=== PATIENT | male | born 1960 | race Caucasian/White ===

== ENCOUNTER 2020-10-18 16:10 | Outpatient (REF) | payer OTHER, MEDICARE, SELFPAY ==
[2020-10-18 16:02] LABS: ESR 23 mm/hr (1-20)
[2020-10-18 16:19] LABS: ALT 41 U/L (16-63); AST 57 U/L (15-37); Albumin 3.7 g/dL (3.4-5.0); Alkaline Phosphatase 196 U/L (46-116); Anion Gap 9.3 mmol/L (3-11); BUN 7 mg/dL (7-18); Bilirubin, Total 0.4 mg/dL (0.2-1.0); CO2 25.7 mmol/L (21.0-32.0); CREATININE 0.7 mg/dL (0.70-1.30); Calcium 9.4 mg/dL (8.5-10.1); Chloride 99 mmol/L (98-107); Glucose 96 mg/dL (74-106); Potassium 4.7 mmol/L (3.5-5.1); Sodium 134 mmol/L (136-145); TSH (W/Ref FT4) 3.01 uIU/mL (0.36-3.74); Total Protein 7.8 g/dL (6.4-8.2); Vitamin B12 282 pg/mL (193-986)
[2020-10-18 16:28] LABS: C-Reactive Protein 1.04 mg/dL (0.0-0.3); Uric Acid 6.9 mg/dL (3.5-7.2)
[2020-10-19 16:49] LABS: Rheumatoid Factor <8.6 IU/mL (<12.0)
[2020-10-19 17:54] LABS: PSA, Screening 0.3 ng/mL (0.0-4.5)
[2020-10-20 11:36] LABS: Lyme Ab w Rflx to Lyme Confirm Negative (Negative)
[2020-10-21 20:46] LABS: Anaplasma phagocytophilum Negative (Negative); B. miyamotoi PCR Negative (Negative); Babesia divergens/MO-1 Negative (Negative); Babesia duncani Negative (Negative); Babesia microti Negative (Negative); Ehrlichia chaffeensis Negative (Negative); Ehrlichia ewingii/canis Negative (Negative); Ehrlichia muris eauclairensis Negative (Negative)
== END 2020-10-18 16:11 | disposition home or self-care (01) ==
LOC: NCHCN 16:10
PROVIDERS: PCP Family Medicine; Visit Provider Family Medicine
DX: G62.9 Polyneuropathy, unspecified (principal); L98.499 Non-pressure chronic ulcer of skin of other sites with unspecified severity; R60.0 Localized edema; I10 Essential (primary) hypertension
CPT/HCPCS: 80053; 84153; 85652; 87798; 82607; 84443; 84550; 86140; 86431; 86618

== ENCOUNTER 2021-01-10 11:18 | Outpatient (REF) | payer OTHER, MEDICARE, SELFPAY ==
[2021-01-10 16:23] LABS: AST 33 U/L (15-37)
[2021-01-11 10:50] LABS: Hepatitis A Antibody IgM Negative (Negative); Hepatitis B Core Antibody Negative (Negative); Hepatitis B surface Ag Negative (Negative); Hepatitis C Ab w Rflx HCV PCR Negative (Negative)
== END 2021-01-10 11:19 | disposition home or self-care (01) ==
LOC: NCHCN 11:18
PROVIDERS: PCP Family Medicine; Visit Provider Family Medicine
DX: R79.89 Other specified abnormal findings of blood chemistry (principal)
CPT/HCPCS: 86704; 86709; 86803; 87340; 84450

== ENCOUNTER 2021-09-22 09:50 | Outpatient (REF) | payer OTHER, MEDICARE, SELFPAY ==
[2021-09-27 09:31] LABS: O-desmethyltramadol 9513 ng/mL (Cutoff:25); Tramadol 15459 ng/mL (Cutoff:25)
== END 2021-09-22 09:51 | disposition home or self-care (01) ==
LOC: NCHCN 09:50
PROVIDERS: PCP Family Medicine; Visit Provider Family Medicine
DX: Z02.89 Encounter for other administrative examinations (principal); Z51.81 Encounter for therapeutic drug level monitoring
CPT/HCPCS: 80373

== ENCOUNTER 2022-03-15 11:09 | Outpatient (REF) | payer OTHER, MEDICARE, SELFPAY ==
[2022-03-15 15:40] LABS: HCT 40.4 % (40.0-50.0); HGB 13.4 g/dL (13.5-17.5); MCH 31.4 pg (27.0-33.0); MCHC 33.2 % (32.0-36.0); MCV 95 fL (80-95); MPV 10.5 fL (8.0-11.0); Platelet Count 272 10^3/uL (130-400); RBC 4.27 10^6/uL (4.36-5.78); RDW 14.5 % (11.8-14.1); RDW-SD 50.4 fL; WBC 10.82 10^3/uL (4.4-10.8)
[2022-03-15 16:31] LABS: ALT 26 U/L (16-63); AST 32 U/L (15-37); Albumin 3.5 g/dL (3.4-5.0); Alkaline Phosphatase 118 U/L (46-116); Anion Gap 7.8 mmol/L (3-11); BUN 7 mg/dL (7-18); Bilirubin, Total 0.4 mg/dL (0.2-1.0); CO2 24.2 mmol/L (21.0-32.0); CREATININE 0.7 mg/dL (0.70-1.30); Calcium 8.9 mg/dL (8.5-10.1); Chloride 98 mmol/L (98-107); Glucose 94 mg/dL (74-106); Potassium 4.6 mmol/L (3.5-5.1); Sodium 130 mmol/L (136-145); Total Protein 7.6 g/dL (6.4-8.2)
[2022-03-15 17:07] LABS: Hemoglobin A1C 5.9 % (<5.7)
[2022-03-15 17:10] LABS: Calculated LDL 138 mg/dL (<100); Cholesterol 237 mg/dL (<200); HDL Cholesterol 79 mg/dL (40-60); Triglyceride 101 mg/dL (<150); Vitamin B12 1281 pg/mL (193-986)
== END 2022-03-15 11:10 | disposition home or self-care (01) ==
LOC: NCHCN 11:09
PROVIDERS: PCP Family Medicine; Visit Provider Family Medicine
DX: Z00.00 Encounter for general adult medical examination without abnormal findings (principal); G62.89 Other specified polyneuropathies; I10 Essential (primary) hypertension; R60.0 Localized edema; M54.16 Radiculopathy, lumbar region; R73.09 Other abnormal glucose; L08.89 Other specified local infections of the skin and subcutaneous tissue; E53.8 Deficiency of other specified B group vitamins
CPT/HCPCS: 80053; 80061; 85027; 87077; 82607; 83036; 87070; 87186; 87205

== ENCOUNTER 2022-06-01 13:14 | Outpatient (REF) | payer OTHER, MEDICARE, SELFPAY | END 2022-06-01 13:15 | disposition home or self-care (01) | LOC: NCHCN 13:14 | PROVIDERS: PCP Family Medicine; Visit Provider Family Medicine | DX: L98.499 Non-pressure chronic ulcer of skin of other sites with unspecified severity (principal) | CPT/HCPCS: 87077; 87070; 87186; 87205 ==

== ENCOUNTER 2022-09-21 09:09 | Outpatient (CLI) | payer OTHER, MEDICARE, SELFPAY | END 2022-09-21 09:10 | disposition home or self-care (01) | PROVIDERS: PCP Family Medicine; Visit Provider Family Medicine | DX: R00.0 Tachycardia, unspecified (principal) | CPT/HCPCS: 93246 ==

== ENCOUNTER 2022-10-16 11:47 | Outpatient (CLI) | payer OTHER, MEDICARE, SELFPAY ==
--- NOTE | 2022-10-16 12:05 | W.CARDEVENT ---
Date of service: 10/16/22 Time of Service: 12:05 Cardiac Event Recorder Referring Provider:: Melissa Soto Indications:: Tachycardia Cardiac Event Note: This is a 14-day cardiac cath lab manager ordered for tachycardia Rhythm throughout was sinus. Average heart rate was 80. Minimum was 58, maximum 122 There was no atrial fibrillation, no SVT, no pauses greater than 3 seconds There were rare ventricular ectopic beats 2 episodes of Mobitz 1 second-degree AV block were noted during sleep Patient's symptoms were reported which corresponded to sinus rhythm in the 70s
== END 2022-10-16 11:48 | disposition home or self-care (01) ==
LOC: CARDOPNVT 11:47
PROVIDERS: PCP Family Medicine; Visit Provider Internal Medicine Cardiovascular Disease
DX: I44.1 Atrioventricular block, second degree (principal)

== ENCOUNTER 2022-11-01 00:32 | Outpatient (CLI) | payer OTHER, MEDICARE, SELFPAY ==
--- NOTE | 2022-11-01 07:30 | DI.US_ITS ---
APPROVED REPORT EXAM: Comprehensive 2D, Doppler, and color-flow Echocardiogram Patient Location: Out-Patient Spool Carrier: Marian Velarde RDCS (AE) Indications: Tachycardia, EKG changes Other Information Study Quality: Fair. Technically limited study due to body habitus. Conclusion Normal left ventricular chamber size. Estimated ejection fraction is 58%. No segmental wall motion abnormalities are noted Grossly normal right ventricular size and systolic function Both atria are normal in size There is no structural or hemodynamically significant valvular disease Wall motion Left Ventricle The left ventricle is grossly normal size. Technically limited parasternal imaging. The left ventricu lar systolic function is normal. The left ventricular ejection fraction is within the normal range. U nable to assess LV wall thickness. There is normal LV segmental wall motion. There is no ventricular septal defect visualized. LVEF is 58%. Right Ventricle Right ventricle is grossly normal in size. Right ventricular systolic function is grossly normal. Atria The left atrium size is normal. The right atrium size is normal. The interatrial septum is intact wit h no evidence for an atrial septal defect. Aortic Valve The aortic valve is normal in structure. There is no aortic valvular stenosis. No aortic regurgitatio n is present. Mitral Valve The mitral valve is normal in structure. No evidence of mitral valve stenosis. Trace mitral regurgita tion. Tricuspid Valve The tricuspid valve is normal in structure. There is no tricuspid valve stenosis. Trace tricuspid reg urgitation. Unable to assess PA pressure. Pulmonic Valve Pulmonic valve is not well visualized. There is no pulmonic valvular stenosis. There is no pulmonic v alvular regurgitation. Great Vessels The aortic root is normal in size. The ascending aorta is normal in size. Aortic arch is not well vis ualized. IVC is normal in size and collapses >50% with inspiration. Pericardium There is no pericardial effusion. 2D Dimensions Ao Root d 3.49 cm M: 3.1 - 3.7 LV Vol A2C d MOD 47.4 mL Ao Asc Diam d 3.01 cm M: 2.6 - 3.4 LV Vol A4C d MOD 74.5 mL LVEF (Singleton's) 57.12 % M: 52 - 72 LA vol/ BSA A2C s A-L 13.9 mL/m2 LV Volume 47.00 mL M: 62 - 150 LA vol/ BSA A4C s A-L 20.4 mL/m2 LV Volume Index 24.60 mL/m2 M: 34 - 74 LA Vol/ BSA Biplane s A-L 19.6 mL/m2 LV Vol Biplane MOD 61.7 mL LA Area A4C s MOD 15.59 cm2 LA Area A2C s MOD 11.06 cm2 LV EF A4C MOD 58.4 % LV EF A2C MOD 56.1 % LV EF Biplane MOD 57.1 % SV 35.26 mL SV Index 18.44 mL/m2 M-Mode TAPSE 1.18 cm (M/F) >1.7 LV Diastology MV E' medial 0.072 (>0.07 m/s) E/A Ratio 0.6 LV E/e MED 7.75 (<14) MV E Vmax 0.56 (0.4-1.3 m/s) MV E' lateral 0.086 (>0.1 m/s) MV A Vmax 0.95 (0.4-1.3 m/s) LV E/e LAT 6.50 (<14) MV E/A Ratio 0.57 MV E/E' medial 7.75 MV E/E' lateral 6.53 Aortic Valve LVOT Area 3.47 cm2 AoV Area Vmax 2.94 cm2 LVOT Vmax 0.82 m/s AoV Area/ BSA (Vmax) 1.54 cm2/m2 LVOT Mean Hubert. 0.54 m/s ANYI Mean Hubert. 2.62 cm2 LVOT Peak Grad 2.7 mmHg ANYI Mean Hubert. Index 1.37 cm2/m2 LVOT Mean Grad 1.3 mmHg LVOT VTI 0.157 m LVOT Diam s 2.10 cm AoV Vmax 0.96 m/s Velocity Ratio 0.85 AoV Mean Hubert. 0.72 m/s AoV Peak Grad 3.7 mmHg LVOT SV 54.38 mL AoV Mean Grad 2.2 mmHg AoV VTI 0.163 m AoV Area VTI 3.33 cm2 AoV Area/ BSA (VTI) 1.74 cm/m2 Mitral Valve MV DT 261 (160-240 msec) MV PHT 76 msec MV Area PHT 2.91 cm2 MV VTI 0.186 m MV Area VTI 2.92 (4.0-6.0 cm2) Pulmonary Valve PV Vmax 0.89 (0.5-1.5 m/s) RVOT Peak Gr. 1.44 mmHg PV Peak Grad 3.2 mmHg RVOT Mean Gr. 0.75 mmHg PV Mean Grad 2.3 mmHg RVOT VTI 0.093 m PV VTI 0.159 m RVOT Vmax 0.60 m/s
== END 2022-11-01 00:52 ==
PROVIDERS: PCP Family Medicine; Visit Provider Family Medicine
DX: R00.0 Tachycardia, unspecified (principal); R94.31 Abnormal electrocardiogram [ECG] [EKG]
CPT/HCPCS: 93306

== ENCOUNTER 2023-02-15 12:38 | Outpatient (REF) | payer MEDICARE, SELFPAY ==
--- NOTE | 2023-02-15 09:30 | SKI_PTH ---
PATIENT: Tirso Lloyd LOC: [facility] U#:[id number] AGE/SX: 62/M ROOM: RE02/15/[address]: Melissa Soto V : 1960 BED: DIS: 02/15/2023 SPEC #: [id number] RECD: 02/15/23 13:18 STATUS: AZRA HAILE #: [id number] KINZA: 02/15/23 09:[address]: Melissa Soto V DEPT: Surgical Specimen RECD BY: Shilpa Silva Tissues: 1 - SKIN BIOPSY(SHAVE/PUNCH) Procedures: SKIN LEVEL 4 Comments: [id number]
== END 2023-02-15 12:39 | disposition home or self-care (01) ==
LOC: NCHCN 12:38
PROVIDERS: PCP Family Medicine; Visit Provider Family Medicine
DX: L30.8 Other specified dermatitis (principal)
CPT/HCPCS: 88305

== ENCOUNTER 2023-03-30 08:10 | Emergency (ER) | payer MEDICARE, SELFPAY ==
[2023-03-30 08:12] VITALS: BP 127/74; PULSE 99; RESP 18; TEMP 37.1; O2SAT 94
--- NOTE | 2023-03-30 08:40 | ED.GENADUL_ITS ---
Discharge Plan Discharge Details Chief Complaint: Orthopedic Primary Care Provider: Melissa Soto V ED Provider: Jesus Wilson Home Meds and New Rx's Prescriptions: No Action fexofenadine [Maria Luz Allergy] 180 MG tablet 180 mg PO DAILY Patient Comments: no longer taking amoxicillin-pot clavulanate [Augmentin] 500-125 mg tablet 1 tab PO BID Qty: 14 0RF Patient Comments: no longer taking Rx Instructions: Take as instructed per Jessi [facility], 06/08 OV cetirizine 10 mg tablet 10 mg PO DAILY Patient Comments: Take 1 tablet by mouth every day cyanocobalamin (vitamin B-12) 1,000 mcg tablet 1,000 mcg PO DAILY Patient Comments: Take 1 tablet by mouth every day furosemide 20 mg tablet 20 mg PO DAILY Patient Comments: Take 1 tablet by mouth once a day as directed metoprolol succinate 25 mg tablet extended release 24 hr 25 mg PO BID Patient Comments: Take 1 tablet by mouth bid morphine [MS Contin] 30 MG tablet extended release 30 mg PO BID tramadol 50 MG tablet 50 mg PO BID gabapentin 300 MG capsule 2 cap PO .QAM, NOON cyclobenzaprine 10 MG tablet 5 mg PO TID PRN naproxen 250 MG tablet 1 tab PO BID PRN Patient Comments: no longer taking aspirin [Lo-Dose Aspirin] 81 MG tablet,delayed release (DR/EC) 162 mg PO DAILY amitriptyline 25 MG tablet 50 mg PO HS nifedipine 60 MG tablet extended release 24hr 90 mg PO DAILY esomeprazole magnesium [Nexium] 40 MG capsule,delayed release(DR/EC) 40 mg PO DAILY lisinopril 10 MG tablet 5 mg PO DAILY Patient Comments: no longer taking ibuprofen 200 MG tablet 600 mg PO BID PRN bisacodyl 5 MG tablet,delayed release (DR/EC) 1 tab PO DAILY Patient Comments: no longer taking gabapentin 300 MG capsule 900 mg PO HS hydrocodone-acetaminophen 1 EACH tablet 1 ea PO Q6H PRN PRNQty: 14 0RF Patient Comments: no longer taking Medical Decision Making X-ray of the left shoulder reveals a mildly impacted humeral head fracture. No dislocation. Clavicle appears normal. Results reviewed with patient treatment plan reviewed with patient and his . Outpatient Ortho referral HPI General Date/Time Provider Initiated Documentation: 03/30/23 08:40 . HPI Narrative: 62-year-old gentleman presents to the emergency department status post fall on . He states he was going down the stairs to his cellar and missed the last step. He tried holding on with the arm on the right as much as he could but unfortunately he still went to the floor landing onto his left shoulder. According to his he was able to raise his arms and lean on his elbows throughout the day on Saturday but the pain and the swelling and discoloration of the left shoulder has gotten worse over the course the past 2 days. No paresthesias distal to the injury no focal weakness. No head trauma. No neck pain. No chest pain. No shortness of breath. No new back pain. Related Data Home Medications Medication Instructions Recorded Confirmed amitriptyline 25 mg tablet 50 mg PO HS 01/24/17 03/30/23 aspirin 81 mg tablet,delayed 162 mg PO DAILY 01/24/17 03/30/23 release (Lo-Dose Aspirin) bisacodyl 5 mg tablet,delayed 1 tab PO DAILY 01/24/17 05/14/17 release cyclobenzaprine 10 mg tablet 5 mg PO TID PRN 01/24/17 03/30/23 esomeprazole magnesium 40 mg 40 mg PO DAILY 01/24/17 03/30/23 capsule,delayed release (Nexium) gabapentin 300 mg capsule 2 cap PO .QAM, NOON 01/24/17 03/30/23 ibuprofen 200 mg tablet 600 mg PO BID PRN 01/24/17 03/30/23 lisinopril 10 mg tablet 5 mg PO DAILY 01/24/17 05/14/17 morphine 30 mg tablet,extended 30 mg PO BID 01/24/17 03/30/23 release (MS Contin) naproxen 250 mg tablet 1 tab PO BID PRN 01/24/17 05/14/17 nifedipine 60 mg tablet,extended 90 mg PO DAILY 01/24/17 03/30/23 release 24 hr tramadol 50 mg tablet 50 mg PO BID 01/24/17 03/30/23 fexofenadine 180 mg tablet 180 mg PO DAILY 02/13/17 05/14/17 (Maria Luz Allergy) gabapentin 300 mg capsule 900 mg PO HS 04/04/17 03/30/23 hydrocodone 5 mg-acetaminophen 325 1 ea PO Q6H PRN PRN ##14 04/08/17 05/14/17 mg tablet amoxicillin 500 mg-potassium 1 tab PO BID cellulitis #14 tabs 06/16/22 clavulanate 125 mg tablet (Augmentin) cetirizine 10 mg tablet 10 mg PO DAILY 03/30/23 03/30/23 cyanocobalamin (vitamin B-12) 1,000 mcg PO DAILY 03/30/23 03/30/23 1,000 mcg tablet furosemide 20 mg tablet 20 mg PO DAILY 03/30/23 03/30/23 metoprolol succinate 25 mg 25 mg PO BID 03/30/23 03/30/23 tablet,extended release 24 hr Previous Rx's Medication Instructions Recorded hydrocodone 5 mg-acetaminophen 325 1 ea PO Q6H PRN PRN ##14 04/08/17 mg tablet amoxicillin 500 mg-potassium 1 tab PO BID cellulitis #14 tabs 06/16/22 clavulanate 125 mg tablet (Augmentin) Allergies Allergy/AdvReac Type Severity Reaction Status Date / Time No Known Allergies Allergy Unverified 03/30/23 08:17 General Stated Complaint: Orthopedic ELLIE: 3 Review of Systems Narrative: 10 point review of system is negative unless otherwise specified in the HPI PFSH All Active Problems (Updated 06/16/22 @ 16:19 by Irena Tarango DO) Cellulitis (Acute) lower rt limb, per d/c note, per pt report Social History Smoking/Tobacco Use Status: Current every day Tobacco Type: smokeless tobacco Smoking risk assessment performed?: Yes Alcohol Intake: current Alcohol Intake frequency: a few times a week Alcohol type: beer Drug use: Daily Substance use type: marijuana Housing: house Do you feel safe at home: Yes Do you feel safe in your relationship?: Yes Exam Narrative Exam Narrative: General: A,A Ox3, Calm, no apparent distress, well developed, pleasant and cooperative Head Size/Shape: normocephalic, atraumatic Eyes Pupils: PERRLA Extraocular Mobility: intact and symmetrical Conjunctiva: non-injected, anicteric, no discharge Ears, Nose, Throat Nares: patent bilaterally Oral Cavity: moist Neck:no midline te Respiratory Respiratory Effort: no dyspnea Auscultation: clear to auscultation bilaterally, normal breath sounds, no wheezing, no rales/crackles Cardiovascular Heart Auscultation: regular rate and rhythm, normal S1, normal S2, no murmurs, no rubs, no gallops, Pulse Quality: +2 equal bilaterally, location(s) Abdomen Inspection and Palpation: soft, non-tender, non-distended, no hepatosplenomegaly Musculoskeletal System Joints, Bones, and Muscles: no deformities Extremities: warm and well-perfused, no cyanosis, capillary refill <2 seconds Skin Skin Inspection: no rash, no lesions, no bruising Neurological Motor: normal tone, normal strength, moving all extremities equally Reflexes: deep tendon reflexes 2+ bilaterally, no clonus Psychiatric: good insight, good judgement, normal mood and affect Course Vital Signs Vital signs: Vital Signs Temperature 37.1 C 03/30/23 08:12 Pulse 99 H 03/30/23 08:12 Respiratory Rate 18 03/30/23 08:12 Blood Pressure 127/74 03/30/23 08:12 Pulse Oximetry 94 03/30/23 08:12 Temperature 37.1 C 03/30/23 08:12 Temperature Source Oral 03/30/23 08:12 Pulse 99 H 03/30/23 08:12 Respiratory Rate 18 03/30/23 08:12 Blood Pressure 127/74 03/30/23 08:12 Blood Pressure Position Sitting 03/30/23 08:12 Pulse Oximetry 94 03/30/23 08:12 Oxygen Delivery Method Room Air 03/30/23 08:12 Oxygen Flow Rate 0 03/30/23 08:12 Pain Level 9 03/30/23 08:12
--- NOTE | 2023-03-30 08:45 | DI.RAD_ITS ---
Exam(s) XR SHOULDER LT COMPLETE 2+V EXAM: XR SHOULDER LT COMPLETE 2+V CLINICAL HISTORY: fall pain. TECHNIQUE: 2D digital imaging was performed. COMPARISON: No exams were available for comparison FINDINGS: 3 views There is an acute impacted mildly displaced surgical neck fracture of the humerus. No osseous lesion s. No radiopaque foreign body. IMPRESSION: Humeral head-neck fracture with impaction. No dislocation of the glenohumeral joint. DATA REPOSITORY: RADIATION DOSE DELIVERED:
[2023-03-30 09:36] VITALS: BP 127/74; PULSE 85; RESP 18; TEMP 37.1; O2SAT 94
--- NOTE | 2023-03-30 09:43 | DI.VRAD_ITS ---
PROCEDURE INFORMATION: Exam: XR Left Shoulder Exam date and time: 03/30/2023 9:10 AM Age: 62 years old Clinical indication: Other: Fall pain TECHNIQUE: Imaging protocol: Radiologic exam of the left shoulder. Views: 2 or more views. COMPARISON: MRI - CERVICAL SPINE WO CONT 02/14/2017 3:26 PM FINDINGS: Bones/joints: There is a comminuted, moderately displaced surgical neck proximal humerus fracture. No dislocation. Soft tissues: upper arm swelling. IMPRESSION: Proximal humerus fracture. Dictated and Authenticated by: Zoraida Herrera MD. Ordering:GEORGE Lee MD
== END 2023-03-30 09:37 | disposition home or self-care (01) ==
PROVIDERS: Emergency Provider Emergency Medicine; PCP Family Medicine
DX: S42.292A Other displaced fracture of upper end of left humerus, initial encounter for closed fracture (principal); W10.9XXA Fall (on) (from) unspecified stairs and steps, initial encounter
CPT/HCPCS: 99283; 73030; 99284

== ENCOUNTER 2023-04-02 10:58 | Outpatient (CLI) | payer MEDICARE, SELFPAY ==
--- NOTE | 2023-04-02 09:48 | DI.RAD_ITS ---
Exam(s) XR SHOULDER LT COMPLETE 2+V EXAM: XR SHOULDER LT COMPLETE 2+V CLINICAL HISTORY: F/U FRACTURE. TECHNIQUE: 2D digital imaging was performed of the left shoulder. Two images were obtained. AP and Y views were obtained. COMPARISON: CR,XR XR SHOULDER LT COMPLETE 2+V from 03/30/2023 FINDINGS: BONES: There is again seen an impacted fracture of the surgical neck of the left humerus. Alignment appears similar compared to the prior examination. Note is also made of fractures involving the left 3rd, 4th and 5th ribs. No bony destructive lesion is seen. JOINTS: No dislocation present. SOFT TISSUE: Normal. IMPRESSION: Impacted surgical neck fracture of the left humerus. DATA REPOSITORY: RADIATION DOSE DELIVERED:
--- NOTE | 2023-04-02 09:49 | DI.RAD_ITS ---
Exam(s) XR WRIST LT LIMITED EXAM: XR WRIST LT LIMITED CLINICAL HISTORY: LEFT WRIST PAIN S/P FALL. TECHNIQUE: 2D digital imaging was performed of the left wrist. Two images were obtained. PA and la teral views were obtained. COMPARISON: No exams were available for comparison FINDINGS: BONES: No acute fracture is present. No bony destructive lesion is seen. JOINTS: The carpal bones are normally aligned. SOFT TISSUE: Normal. IMPRESSION: Unremarkable radiographs of the left wrist. DATA REPOSITORY: RADIATION DOSE DELIVERED:
--- NOTE | 2023-04-02 09:51 | DI.RAD_ITS ---
Exam(s) XR CHEST 1V IN DI DEPT EXAM: XR CHEST 1V IN DI DEPT CLINICAL HISTORY: RIB PAIN S/P FALL TECHNIQUE: 2D digital imaging was performed of the chest. One image was obtained. An AP view was ob tained. COMPARISON: CR CHEST 2 VIEWS PA,LAT from 02/01/2017 FINDINGS: MEDIASTINUM: Normal. HEART: Normal. PULMONARY VASCULATURE: Normal. LUNGS: Linear atelectasis is seen in the lung bases. No focal consolidating infiltrates. PLEURAL SPACE: No pleural effusion or pneumothorax. BONE:Within normal limits for the patient's age. Findings suspicious for left 3rd, 4th and 5th rib fr actures are seen on the x-ray of the left shoulder performed the same day. OTHER FINDINGS:Normal. IMPRESSION: Bilateral basilar atelectasis. DATA REPOSITORY: RADIATION DOSE DELIVERED:
== END 2023-04-02 10:59 | disposition home or self-care (01) ==
LOC: DIORS 10:58
PROVIDERS: PCP Family Medicine; Referring Provider Family Medicine; Visit Provider Student in an Organized Health Care Education/Training Program
DX: S42.292A Other displaced fracture of upper end of left humerus, initial encounter for closed fracture; X58.XXXA Exposure to other specified factors, initial encounter
CPT/HCPCS: 99203; 99213; 71045; 73030; 73100

== ENCOUNTER 2023-04-17 10:26 | Outpatient (CLI) | payer MEDICARE, SELFPAY ==
--- NOTE | 2023-04-17 09:36 | DI.RAD_ITS ---
Exam(s) XR SHOULDER LT COMPLETE 2+V EXAM: XR SHOULDER LT COMPLETE 2+V CLINICAL HISTORY: LEFT SHOULDER F/U. TECHNIQUE: 2D digital imaging was performed. COMPARISON: CR XR SHOULDER LT COMPLETE 2+V from 04/02/2023 FINDINGS: 3 views There is relatively stable appearance at the impacted femoral head-neck fracture site. There is no d islocation of glenohumeral joint. No fracture fragments evident in the non diminished subacromial sp luisa. No obvious fracture of the glenoid and scapula. There are adjacent multiple rib fractures agai n noted. There is atelectasis in the left lung again noted. No obvious pneumothorax. IMPRESSION: Unchanged appearance at the impacted fracture site of the humeral head-neck. The left sided rib fractures again noted. Atelectasis in the left lung base again noted. No pneumot horax. DATA REPOSITORY: RADIATION DOSE DELIVERED:
== END 2023-04-17 10:27 | disposition home or self-care (01) ==
LOC: DIORS 10:26
PROVIDERS: PCP Family Medicine; Referring Provider Family Medicine; Visit Provider Student in an Organized Health Care Education/Training Program
DX: S42.202D Unspecified fracture of upper end of left humerus, subsequent encounter for fracture with routine healing; X58.XXXD Exposure to other specified factors, subsequent encounter
CPT/HCPCS: 99213; 73030

== ENCOUNTER 2023-05-09 11:04 | Outpatient (REF) | payer MEDICARE, SELFPAY ==
[2023-05-09 17:00] LABS: HCT 40.6 % (40.0-50.0); HGB 13.3 g/dL (13.5-17.5); MCH 31.1 pg (27.0-33.0); MCHC 32.8 % (32.0-36.0); MCV 95 fL (80-95); MPV 11.1 fL (8.0-11.0); Platelet Count 388 10^3/uL (130-400); RBC 4.27 10^6/uL (4.36-5.78); RDW 14.4 % (11.8-14.1); RDW-SD 49.9 fL; WBC 9.29 10^3/uL (4.4-10.8)
[2023-05-09 17:26] LABS: Hemoglobin A1C 5.5 % (<5.7)
[2023-05-09 17:55] LABS: ALT 20 U/L (16-63); AST 25 U/L (15-37); Albumin 3.4 g/dL (3.4-5.0); Alkaline Phosphatase 245 U/L (46-116); Anion Gap 5.7 mmol/L (3-11); BUN 5 mg/dL (7-18); Bilirubin, Total 0.3 mg/dL (0.2-1.0); CO2 29.3 mmol/L (21.0-32.0); CREATININE 0.8 mg/dL (0.70-1.30); Calcium 9.5 mg/dL (8.5-10.1); Chloride 98 mmol/L (98-107); Estimated GFR 100.06 (mL/min/1.73m2); Glucose 95 mg/dL (74-106); Sodium 133 mmol/L (136-145); Total Protein 7.9 g/dL (6.4-8.2)
== END 2023-05-09 11:05 | disposition home or self-care (01) ==
LOC: NCHCN 11:04
PROVIDERS: PCP Family Medicine; Visit Provider Family Medicine
DX: I10 Essential (primary) hypertension (principal); R00.0 Tachycardia, unspecified; R79.89 Other specified abnormal findings of blood chemistry
CPT/HCPCS: 80053; 85027; 83036

== ENCOUNTER → 2023-05-16 10:41 | Outpatient (CLI) | payer MEDICARE, SELFPAY ==
--- NOTE | 2023-05-16 10:39 | DI.RAD_ITS ---
Exam(s) XR SHOULDER LT COMPLETE 2+V EXAM: XR SHOULDER LT COMPLETE 2+V CLINICAL HISTORY: pain from recent fall, closed fracture lt proximal humerus, S42.202A.. TECHNIQUE: 2D digital imaging was performed of the left shoulder. Four images were obtained. AP, G rashey, Y-view and axillary views were obtained. COMPARISON: CR XR SHOULDER LT COMPLETE 2+V from 04/17/2023 FINDINGS: BONES: There is stable alignment of the proximal humeral fracture. Callus formation has continued de veloped about the fracture consistent with some interval healing. There also multiple healing left r ib fractures. No bony destructive lesion is seen. JOINTS: No dislocation present. The acromioclavicular joint is well maintained. SOFT TISSUE: Normal. IMPRESSION: Stable alignment of the proximal left humeral fracture. DATA REPOSITORY: RADIATION DOSE DELIVERED:
== END ==
PROVIDERS: PCP Family Medicine; Visit Provider Student in an Organized Health Care Education/Training Program
DX: S42.292D Other displaced fracture of upper end of left humerus, subsequent encounter for fracture with routine healing (principal); X58.XXXD Exposure to other specified factors, subsequent encounter; W10.9XXD Fall (on) (from) unspecified stairs and steps, subsequent encounter
CPT/HCPCS: 73030

== ENCOUNTER 2023-05-29 10:23 | Outpatient (CLI) | payer MEDICARE, SELFPAY ==
--- NOTE | 2023-05-29 10:15 | DI.RAD_ITS ---
Exam(s) XR SHOULDER LT COMPLETE 2+V EXAM: XR SHOULDER LT COMPLETE 2+V CLINICAL HISTORY: LEFT PROXIMAL HUMERUS. TECHNIQUE: 2D digital imaging was performed. COMPARISON: CR XR SHOULDER LT COMPLETE 2+V from 05/16/2023 FINDINGS: Two views The impacted comminuted humeral head-neck fracture appears unchanged from 05/16 3. Fracture line sti ll visible. Mild callus formation. No soft tissue calcifications in the subacromial space. IMPRESSION: Unchanged alignment of the proximal humeral fracture fragments. DATA REPOSITORY: RADIATION DOSE DELIVERED:
== END 2023-05-29 10:24 | disposition home or self-care (01) ==
LOC: DIORS 10:23
PROVIDERS: PCP Family Medicine; Referring Provider Family Medicine; Visit Provider Student in an Organized Health Care Education/Training Program
DX: S42.292D Other displaced fracture of upper end of left humerus, subsequent encounter for fracture with routine healing (principal); W10.9XXD Fall (on) (from) unspecified stairs and steps, subsequent encounter
CPT/HCPCS: 99213; 73030

== ENCOUNTER → 2023-12-05 01:48 | Outpatient (CLI) | payer MEDICARE, SELFPAY ==
--- NOTE | 2023-12-05 | DI.US_ITS ---
Exam(s) US SOFT TISSUE EXTREMITY EXAM: US SOFT TISSUE EXTREMITY CLINICAL HISTORY: SOFT TISSUE MASS RT UPPER BAÑUELOS LIMB,R22.41,? CYST OR BONY INVOLVEMENT. TECHNIQUE: Ultrasound was performed using standard protocol. COMPARISON: No exams were available for comparison FINDINGS: Sonographic assessment utilizing grayscale and color Doppler imaging was performed and targeted to th e area of clinical concern in the anterior mid leg. There is an ovoid heterogeneous collection measuring 3.5 x 1.1 x 3.5 cm. This could represent an abs cess versus hematoma. No internal blood flow. The bone can not be evaluated by ultrasound. IMPRESSION: 3.5 centimeter hematoma versus abscess anterior leg. DATA REPOSITORY:
== END ==
PROVIDERS: PCP Family Medicine; Visit Provider Family Medicine
DX: R22.41 Localized swelling, mass and lump, right lower limb (principal)
CPT/HCPCS: 76881

== ENCOUNTER 2024-07-08 13:55 | Outpatient (REF) | payer MEDICARE, SELFPAY | END 2024-07-08 13:56 | disposition home or self-care (01) | LOC: NCHCN 13:55 | PROVIDERS: PCP Family Medicine; Visit Provider Family Medicine | DX: L98.499 Non-pressure chronic ulcer of skin of other sites with unspecified severity (principal) | CPT/HCPCS: 87077; 87070; 87186; 87205 ==

== ENCOUNTER 2024-08-21 10:47 | Outpatient (REF) | payer MEDICARE, SELFPAY | END 2024-08-21 10:48 | disposition home or self-care (01) | LOC: NCHCN 10:47 | PROVIDERS: PCP Family Medicine; Visit Provider Family Medicine | DX: L30.8 Other specified dermatitis (principal) | CPT/HCPCS: 87077; 87070; 87186; 87205 ==

== ENCOUNTER 2024-11-19 15:25 | Outpatient (REF) | payer MEDICARE, SELFPAY | END 2024-11-19 15:26 | disposition home or self-care (01) | LOC: NCHCN 15:25 | PROVIDERS: PCP Family Medicine; Visit Provider Family Medicine | DX: L98.499 Non-pressure chronic ulcer of skin of other sites with unspecified severity (principal); B95.61 Methicillin susceptible Staphylococcus aureus infection as the cause of diseases classified elsewhere | CPT/HCPCS: 87077; 87070; 87186; 87205 ==

== ENCOUNTER 2025-01-21 09:36 | Outpatient (REF) | payer MEDICARE, SELFPAY ==
[2025-01-21 15:38] LABS: HCT 42.1 % (40.0-50.0); HGB 14.2 g/dL (13.5-17.5); MCH 31.3 pg (27.0-33.0); MCHC 33.7 % (32.0-36.0); MCV 93 fL (80-95); MPV 10.3 fL (8.0-11.0); Platelet Count 363 10^3/uL (130-400); RBC 4.53 10^6/uL (4.36-5.78); RDW 14.4 % (11.8-14.1); RDW-SD 48.9 fL
[2025-01-21 16:19] LABS: ALT 17 U/L (16-63); AST 18 U/L (15-37); Albumin 3.6 g/dL (3.4-5.0); Alkaline Phosphatase 170 U/L (46-116); Anion Gap 9.6 mmol/L (3-11); BUN 10 mg/dL (7-18); Bilirubin, Total 0.4 mg/dL (0.2-1.0); CO2 27.4 mmol/L (21.0-32.0); CREATININE 0.9 mg/dL (0.70-1.30); Calcium 9.7 mg/dL (8.5-10.1); Chloride 97 mmol/L (98-107); Estimated GFR 95.37 (mL/min/1.73m2); Glucose 106 mg/dL (74-106); Potassium 4.8 mmol/L (3.5-5.1); Sodium 134 mmol/L (136-145); Total Protein 8.2 g/dL (6.4-8.2); Vitamin B12 857 pg/mL (193-986)
== END 2025-01-21 09:37 | disposition home or self-care (01) ==
LOC: NCHCN 09:36
PROVIDERS: PCP Family Medicine; Visit Provider Family Medicine
DX: R60.0 Localized edema (principal); E53.8 Deficiency of other specified B group vitamins; L98.499 Non-pressure chronic ulcer of skin of other sites with unspecified severity
CPT/HCPCS: 80053; 85027; 87077; 82607; 87070; 87186; 87205

== ENCOUNTER 2025-03-01 17:15 | Outpatient (REF) | payer MEDICARE, SELFPAY ==
[2025-03-01 16:37] LABS: Anion Gap 10.8 mmol/L (3-11); BUN 7 mg/dL (7-18); CO2 26.2 mmol/L (21.0-32.0); CREATININE 0.7 mg/dL (0.70-1.30); Calcium 9.3 mg/dL (8.5-10.1); Chloride 96 mmol/L (98-107); Estimated GFR 102.89 (mL/min/1.73m2); Glucose 91 mg/dL (74-106); Potassium 5.7 mmol/L (3.5-5.1); Sodium 133 mmol/L (136-145)
== END 2025-03-01 17:16 | disposition home or self-care (01) ==
LOC: NCHCN 17:15
PROVIDERS: PCP Family Medicine; Visit Provider Family Medicine
DX: I87.2 Venous insufficiency (chronic) (peripheral) (principal)
CPT/HCPCS: 80048

== ENCOUNTER 2025-03-31 18:41 | Outpatient (REF) | payer MEDICARE, SELFPAY ==
[2025-03-31 22:52] LABS: Anion Gap 9.6 mmol/L (3-11); BUN 7 mg/dL (7-18); CO2 29.4 mmol/L (21.0-32.0); Calcium 9.5 mg/dL (8.5-10.1); Chloride 97 mmol/L (98-107); Estimated GFR 102.89 (mL/min/1.73m2); Glucose 97 mg/dL (74-106); Potassium 5.3 mmol/L (3.5-5.1); Sodium 136 mmol/L (136-145)
== END 2025-03-31 18:42 | disposition home or self-care (01) ==
LOC: NCHCN 18:41
PROVIDERS: PCP Family Medicine; Visit Provider Family Medicine
DX: R60.0 Localized edema (principal)
CPT/HCPCS: 80048

== ENCOUNTER 2025-04-20 16:20 | Outpatient (REF) | payer MEDICARE, SELFPAY | END 2025-04-20 16:21 | disposition home or self-care (01) | LOC: NCHCN 16:20 | PROVIDERS: PCP Family Medicine; Visit Provider Family Medicine | DX: L97.919 Non-pressure chronic ulcer of unspecified part of right lower leg with unspecified severity (principal) | CPT/HCPCS: 87077; 87070; 87186; 87205 ==

== ENCOUNTER 2025-04-28 15:51 | Outpatient (REF) | payer MEDICARE, SELFPAY ==
[2025-04-28 16:29] LABS: Anion Gap 9.9 mmol/L (3-11); BUN 10 mg/dL (7-18); CO2 25.1 mmol/L (21.0-32.0); Calcium 9.0 mg/dL (8.5-10.1); Chloride 100 mmol/L (98-107); Estimated GFR 95.37 (mL/min/1.73m2); Glucose 94 mg/dL (74-106); Potassium 5.1 mmol/L (3.5-5.1); Sodium 135 mmol/L (136-145)
[2025-04-29 09:27] LABS: PSA, Screening 0.3 ng/mL (<=4.5)
== END 2025-04-28 15:52 | disposition home or self-care (01) ==
LOC: NCHCN 15:51
PROVIDERS: PCP Family Medicine; Visit Provider Family Medicine
DX: Z12.5 Encounter for screening for malignant neoplasm of prostate (principal)
CPT/HCPCS: 80048; 84153

== ENCOUNTER 2025-05-03 16:29 | Outpatient (REF) | payer MEDICARE, SELFPAY | END 2025-05-03 16:30 | disposition home or self-care (01) | LOC: NCHCN 16:29 | PROVIDERS: PCP Family Medicine; Visit Provider Family Medicine | DX: L97.812 Non-pressure chronic ulcer of other part of right lower leg with fat layer exposed (principal) | CPT/HCPCS: 87070; 87205 ==

== ENCOUNTER 2025-06-01 07:13 | Emergency (ER) | payer MEDICARE, SELFPAY ==
[2025-06-01] VITALS (18 sets, daily range): BP systolic 124–143; BP diastolic 71–83; PULSE 81–106; RESP 14; TEMP 36.2; O2SAT 92–95
--- NOTE | 2025-06-01 07:20 | W.ED.GENAD ---
Discharge Plan Disposition Patient Disposition: Home Discharge Details Clinical Impression: Ulcer of right lower extremity Primary Care Provider: Melissa Soto V ED Provider: Rm Payne Home Meds and New Rx's Prescriptions: New cephalexin 500 mg capsule 500 mg PO QID 5 Days Qty: 20 0RF butenafine [Lotrimin Ultra] 1 % cream 1 applic topical BID 7 Days Qty: 12 0RF Continued cetirizine 10 mg tablet 10 mg PO DAILY Patient Comments: Take 1 tablet by mouth every day cyanocobalamin (vitamin B-12) 1,000 mcg tablet 1,000 mcg PO DAILY Patient Comments: Take 1 tablet by mouth every day furosemide 20 mg tablet 20 mg PO DAILY Patient Comments: Take 1 tablet by mouth once a day as directed metoprolol succinate 25 mg tablet extended release 24 hr 25 mg PO DAILY Patient Comments: Take 1 tablet by mouth bid morphine [MS Contin] 30 MG tablet extended release 30 mg PO BID tramadol 50 MG tablet 50 mg PO BID gabapentin 300 MG capsule 2 cap PO .QAM, NOON cyclobenzaprine 10 MG tablet 5 mg PO TID PRN aspirin [Lo-Dose Aspirin] 81 MG tablet,delayed release (DR/EC) 81 mg PO DAILY amitriptyline 25 MG tablet 50 mg PO HS nifedipine 60 MG tablet extended release 24hr 90 mg PO DAILY esomeprazole magnesium [Nexium] 40 MG capsule,delayed release(DR/EC) 40 mg PO DAILY gabapentin 300 MG capsule 900 mg PO HS Discharge Instructions Additional Instructions: You were seen in the emergency department for your leg ulcers. Please take this antibiotic and antifungal cream as directed. As we discussed, if you develop worsening redness swelling fevers or chills please return to the emergency department. Otherwise a referral has been placed to the podiatry team requesting outpatient follow-up. Referrals: Tavia Renee DPM [[facility] STAFF PHYSICIAN, Podiatry] Discharge Data Discharge Date/Time-TO BE ENTERED AT DEPARTURE: 06/01/25 09:53 HPI General Date/Time Provider Initiated Documentation: 06/01/25 07:20. HPI Narrative: MDM This is an overall well-appearing initially tachycardic 64-year-old male with chronic right lower extremity open ulcerated areas with concern for candidiasis infection for which patient will receive laboratory evaluation and empiric coverage for sepsis given tachycardia and chills. No pain out of proportion to suggest necrotizing soft tissue infection. No trauma nor underlying bony tenderness to suggest increased risk for fracture so I did not feel patient required a radiograph of his right lower extremity. Given the shallow nature of the patient's wounds my suspicion was low for osteomyelitis so I did not feel patient required an MRI nor assessment of his CRP nor ESR. No fluctuance to suggest abscess so we will defer MRSA coverage. Given well-perfused lower extremities I do not feel the patient requires emergent CT angiogram of his abdomen pelvis with runoffs as I am not concerned for critical limb ischemia. Will treat with topical antifungals anticipate discharge with outpatient podiatry follow-up. Patient reports that he has been evaluated in the past with vascular imaging and reports that these were reassuring. There are no vascular lower extremity results available in the [facility] [place]. 8:40 AM Mild lactic acidosis at 2.5 mmol/L. Basic metabolic panel showing mild anion gap but no MARA. Mild hyperglycemia but normal bicarbonate??not consistent with DKA. CBC lacks anemia thrombocytopenia and leukocytosis. 8:53 AM I was in touch with Dr. Fabian from podiatry who will arrange to have the patient seen in follow-up. Patient's heart rate normalized without intervention. Will repeat a lactate following patient's 500 cc fluid bolus. 2:38 PM Patient's repeat lactate was slightly improved. Still slightly above normal at 2.4 mmol/L. Given that the patient was quite well-appearing and his tachycardia resolved I did not feel that this very mild lactic acidosis represented sepsis and I felt that the risks of additional fluids outweighed the benefits. Furthermore patient was tolerating p.o. and is able to keep down fluids in the ED. Patient is and I discussed that he should return to the ED if he developed fevers worsening redness streaking signs of infection or any foul-smelling drainage. He understood his return indications and was discharged with an empiric trial of expectant outpatient management. HPI This is a patient with a history of atrial fibrillation presenting with a right leg infection. The patient has been experiencing an intermittent infection in his right leg for several years, which has recently worsened. The infection has been treated with home health care and physician visits since 01/2025. Despite ongoing treatment, including two to three courses of oral antibiotics such as amoxicillin and Cipro, the area remains red, and the patient continues to experience chills. The patient was advised to seek emergency care due to concerns of sepsis last Saturday, but he did not come to the ER as he did not feel severely ill. The patient reports no history of diabetes or smoking but chews tobacco. He has undergone a CT scan of his abdomen and legs. A vascular specialist confirmed that his veins are in good condition. The patient reports no trouble breathing or abdominal pain. His last course of oral antibiotics, amoxicillin, was completed a week ago. He receives home health care three times a week. Exam General: Well-appearing in no acute distress speaking in complete sentences. Head: Normocephalic, atraumatic. Eye: Extraocular eye movements intact. No conjunctival injection. No scleral icterus. Ear, nose, mouth, throat: Grossly normal inspection. Normal voice, handling secretions normally. Neck: Trachea midline. Cardiovascular: Well-perfused distal extremities. Bilateral lower extremities intact PT and DP pulses. Cap refill less than 2 seconds bilateral lower extremities. Respiratory: Nonlabored respiration. Gastrointestinal: Nondistended abdomen. Musculoskeletal: No edema. Moving all 4 extremities spontaneously. Skin: There are 2 shallow-based ulcerated areas on the right mid tibia. There is mild surrounding erythema with mild warmth. There is a scaly edge to these areas as shown in the photos below: Neurologic: Alert and appropriate, no apparent acute deficits. Psychiatric: Mood and manner are appropriate. Grooming and personal hygiene are appropriate. Related Data Home Medications ?Medication ?Instructions ?Recorded ?Confirmed amitriptyline 25 mg tablet 50 mg PO HS 01/24/17 06/01/25 aspirin 81 mg tablet,delayed 81 mg PO DAILY 01/24/17 06/01/25 release (Lo-Dose Aspirin) cyclobenzaprine 10 mg tablet 5 mg PO TID PRN 01/24/17 06/01/25 esomeprazole magnesium 40 mg 40 mg PO DAILY 01/24/17 06/01/25 capsule,delayed release (Nexium) gabapentin 300 mg capsule 2 cap PO .QAM, NOON 01/24/17 06/01/25 morphine 30 mg tablet,extended 30 mg PO BID 01/24/17 06/01/25 release (MS Contin) nifedipine 60 mg tablet,extended 90 mg PO DAILY 01/24/17 06/01/25 release 24 hr tramadol 50 mg tablet 50 mg PO BID 01/24/17 06/01/25 gabapentin 300 mg capsule 900 mg PO HS 04/04/17 06/01/25 cetirizine 10 mg tablet 10 mg PO DAILY 03/30/23 06/01/25 cyanocobalamin (vitamin B-12) 1,000 mcg PO DAILY 03/30/23 06/01/25 1,000 mcg tablet furosemide 20 mg tablet 20 mg PO DAILY 03/30/23 06/01/25 metoprolol succinate 25 mg 25 mg PO DAILY 03/30/23 06/01/25 tablet,extended release 24 hr butenafine 1 % topical cream 1 applic topical BID 1 week #12 06/01/25 (Lotrimin Ultra) grams cephalexin 500 mg capsule 500 mg PO QID 5 days #20 caps 06/01/25 Previous Rx's ?Medication ?Instructions ?Recorded butenafine 1 % topical cream 1 applic topical BID 1 week #12 06/01/25 (Lotrimin Ultra) grams cephalexin 500 mg capsule 500 mg PO QID 5 days #20 caps 06/01/25 Allergies Allergy/AdvReac Type Severity Reaction Status Date / Time No Known Allergies Allergy Verified 06/01/25 10:12 General ELLIE: 3 PFSH All Active Problems (Updated 06/01/25 @ 08:32 by Rm Payne MD) Ulcer of right lower extremity (Acute) Closed fracture of left proximal humerus (Acute ~03/28/23) Cellulitis (Acute) lower rt limb, per d/c note, per pt report Social History Smoking/Tobacco Use Status: Current every day Tobacco Type: smokeless tobacco Smoking risk assessment performed?: Yes Alcohol Intake: current Alcohol Intake frequency: a few times a week Alcohol type: beer Drug use: Daily Substance use type: marijuana Housing: house Current gender identity: male Do you feel safe at home: Yes Do you feel safe in your relationship?: Yes
[2025-06-01 08:20] LABS: Abs Immature Grans 0.08 10^3/uL (0.0-0.06); HCT 43.1 % (40.0-50.0); HGB 14.3 g/dL (13.5-17.5); Immature Grans % 0.9 %; MCH 31.5 pg (27.0-33.0); MCHC 33.2 % (32.0-36.0); MCV 95 fL (80-95); MPV 10.1 fL (8.0-11.0); Platelet Count 316 10^3/uL (130-400); RBC 4.54 10^6/uL (4.36-5.78); RDW 14.1 % (11.8-14.1); RDW-SD 48.6 fL; WBC 9.40 10^3/uL (4.4-10.8)
[2025-06-01 08:34] LABS: Anion Gap 11.1 mmol/L (3-11); BUN 7 mg/dL (7-18); CO2 28.9 mmol/L (21.0-32.0); Calcium 9.7 mg/dL (8.5-10.1); Chloride 99 mmol/L (98-107); Estimated GFR 98.83 (mL/min/1.73m2); Glucose 107 mg/dL (74-106); Potassium 4.0 mmol/L (3.5-5.1); Sodium 139 mmol/L (136-145)
[2025-06-01] MEDS: Normal Saline 500 ML IV (08:34)
[2025-06-01] MEDS: CEFEPIME 2 GM in Normal Saline 100 ML IVPB (08:34)
[2025-06-01] MEDS: Clotrimazole 1% 15 GM TUBE TP (08:52)
== END 2025-06-01 09:53 | disposition home or self-care (01) ==
PROVIDERS: Emergency Provider Emergency Medicine; PCP Family Medicine
DX: L97.912 Non-pressure chronic ulcer of unspecified part of right lower leg with fat layer exposed (principal)
CPT/HCPCS: 36415; 80048; 87040; 96365; 99284; 83605; 85025; 99283; J0692

== ENCOUNTER 2025-06-03 07:57 | Outpatient (REF) | payer MEDICARE, SELFPAY | END 2025-06-03 07:58 | disposition home or self-care (01) | LOC: LBN 07:57 | PROVIDERS: PCP Family Medicine; Referring Provider Family Medicine; Visit Provider Podiatrist | DX: L97.919 Non-pressure chronic ulcer of unspecified part of right lower leg with unspecified severity (principal); L03.90 Cellulitis, unspecified | CPT/HCPCS: 87077; 87070; 87075; 87186; 87205 ==

== ENCOUNTER 2025-07-08 12:27 | Outpatient (REF) | payer MEDICARE, SELFPAY | END 2025-07-08 12:28 | disposition home or self-care (01) | LOC: NCHCN 12:27 | PROVIDERS: PCP Family Medicine; Visit Provider Family Medicine | DX: L97.919 Non-pressure chronic ulcer of unspecified part of right lower leg with unspecified severity (principal) | CPT/HCPCS: 87077; 87070; 87186; 87205 ==

== ENCOUNTER 2025-07-09 18:47 | Outpatient (REF) | payer MEDICARE, SELFPAY ==
[2025-07-09 17:34] LABS: Anion Gap 9.7 mmol/L (3-11); BUN 7 mg/dL (7-18); CO2 26.3 mmol/L (21.0-32.0); Calcium 8.8 mg/dL (8.5-10.1); Chloride 97 mmol/L (98-107); Estimated GFR 83.52 (mL/min/1.73m2); Glucose 87 mg/dL (74-106); Potassium 5.0 mmol/L (3.5-5.1); Sodium 133 mmol/L (136-145)
== END 2025-07-09 18:48 | disposition home or self-care (01) ==
LOC: NCHCN 18:47
PROVIDERS: PCP Family Medicine; Visit Provider Family Medicine
DX: I10 Essential (primary) hypertension (principal); I87.2 Venous insufficiency (chronic) (peripheral); E53.8 Deficiency of other specified B group vitamins; I48.91 Unspecified atrial fibrillation; L03.115 Cellulitis of right lower limb
CPT/HCPCS: 80048

== ENCOUNTER 2025-08-23 16:19 | Outpatient (REF) | payer MEDICARE, SELFPAY | END 2025-08-23 16:20 | disposition home or self-care (01) | LOC: NCHCN 16:19 | PROVIDERS: PCP Family Medicine; Visit Provider Family Medicine | DX: L97.812 Non-pressure chronic ulcer of other part of right lower leg with fat layer exposed (principal) | CPT/HCPCS: 87077; 87070; 87186; 87205 ==